=== PATIENT | female | born 1960 | race Caucasian/White ===

== ENCOUNTER 2022-11-21 13:52 | Emergency (ER) | payer OTHER, SELFPAY ==
[2022-11-21 14:02] VITALS: BP 144/83; PULSE 80; RESP 18; TEMP 36.2; O2SAT 97
--- NOTE | 2022-11-21 14:51 | ED.FEMALEGU ---
HPI - Female Genitourinary General Time Seen by Provider: 14:51 Date Seen: 11/21/22 Chief complaint: Vaginal Bleeding Stated complaint: no period 20 years, bled this morning Time Seen by Provider: 11/21/22 14:21 Source: patient and RN notes reviewed Mode of arrival: ambulatory Limitations: no limitations History of Present Illness HPI Narrative: This 62-year-old female is coming into our ER with postmenopausal bleeding that started today. 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 She awoke and had some light spotting this morning with wiping. She started to have more heavy bleeding. She went to the bathroom just prior to coming in here and did not have any more bleeding with wiping. She went through menopause about 20 years ago, states she did have heavy bleeding in perimenopause. She denies any abdominal pain. She has had no night sweats. She does endorse unintentional weight loss but admits that her job is stressful. She knows that she has went from large [employer] to Home[employer]. She denies any history of abnormal Pap smears. She admits she has not been to the doctor for years since she quit having her periods. She is a heavy smoker. She states that she does have underlying renal cysts and has chronic hematuria with that. MD elicited complaint: vaginal bleeding Related Data Home Medications Medication Instructions Recorded Confirmed No Known Home Medications 11/21/22 11/21/22 Allergies Allergy/AdvReac Type Severity Reaction Status Date / Time Penicillins Allergy Severe Hives Verified 11/21/22 14:01 Review of Systems Status of ROS: Reports: 6 or more systems reviewed and unremarkable except as noted in History and below PFSH PFS Social History Smoking Status: Current every day smoker What tobacco products do you use: cigarettes Do you use any of these nicotine containing products: None How often do you have a drink containing alcohol: never How often do you have six or more drinks on one occasion: Never AUDIT-C Alcohol total score: 0 Non-prescribed substance use: denies use Exam Const: Vital Signs, click to edit/add: Vital Signs - 24 hr 11/21/22 14:02 Temperature 97.2 F L Pulse Rate [Pulse Oximeter] 80 Respiratory Rate 18 Blood Pressure [Ri ght Upper Arm] 144/83 H Pulse Oximetry 97 Oxygen Delivery Me thod Room Air Very pleasant 62-year-old female is alert interactive no apparent distress, ambulatory into the ED of her own accord. She has clear sclera, conjugate gaze. Lungs are clear with good air entry, no wheezing or crackles. CV regular rate and rhythm no murmur, normal S1 and S2. Abdomen is soft, no rebound or guarding, no organomegaly. Pelvic exam deferred at this point, we will be getting an ultrasound. Course Course ED Course: Reviewed with this patient that postmenopausal bleeding is most definitely abnormal, need to proceed with an ultrasound. Will also get baseline labs. She is not actively bleeding at this time, will be observed while here. Reevaluation(s) Time of Reevaluation #1: 17:25 Reevaluation #1: Reviewed US and labs, provided disc of US to take to f/up appointment. Stressed the need to follow up to have endometrial biopsy done to ensure that this bleeding is not from uterine cancer. Vital Signs Vital signs: Initial Vital Signs Temperature 97.2 F L 11/21/22 14:02 Temperature Source Temporal Artery Scan 11/21/22 14:02 Pulse Rate 80 11/21/22 14:02 Respiratory Rate 18 11/21/22 14:02 Blood Pressure 144/83 H 11/21/22 14:02 Blood Pressure Mean 103 11/21/22 14:02 Blood Pressure Position Sitting 11/21/22 14:02 Pulse Oximetry 97 11/21/22 14:02 Oxygen Delivery Method Room Air 11/21/22 14:02 Vital Signs Temperature 97.2 F L 11/21/22 14:02 Pulse Rate 80 11/21/22 14:02 Respiratory Rate 18 11/21/22 14:02 Blood Pressure 144/83 H 11/21/22 14:02 Pulse Oximetry 97 11/21/22 14:02 Oxygen Delivery Method Room Air 11/21/22 14:02 Temperature 97.2 F L 11/21/22 14:02 Pulse Rate 80 11/21/22 14:02 Respiratory Rate 18 11/21/22 14:02 Blood Pressure 144/83 H 11/21/22 14:02 Pulse Oximetry 97 11/21/22 14:02 Oxygen Delivery Method Room Air 11/21/22 14:02 MDM - Female Genitourinary Lab Data Attestation: I reviewed the patient's lab results. Labs: Lab Results 11/21/22 Range/Units 15:08 WBC 6.67 (4.50-11.00) K/uL RBC 4.88 (4.00-5.20) m/uL Hgb 14.5 (12.0-16.0) gm/dL Hct 43.2 (33.0-51.0) % MCV 89 (80-100) fL MCH 30 (26-34) pg MCHC 34 (32-36) gm/dL RDW Coeff of Brando 14.4 (11.5-15.5) % Plt Count 339 (140-440) K/uL Neut % (Auto) 51.1 (42.0-72.0) % Lymph % (Auto) 37.6 (20-44) % [place] % (Auto) 8.8 (0.0-11.0) % Eos % (Auto) 1.5 (0.0-7.0) % Baso % (Auto) 0.9 (0.0-3.0) % Neut # (Auto) 3.40 (1.7-7.0) K/uL Lymph # (Auto) 2.51 (0.90-2.90) K/uL [place] # (Auto) 0.60 (0.00-0.90) K/UL Eos # (Auto) 0.10 (0.00-0.50) K/uL Baso # (Auto) 0.06 (0.00-0.30) K/uL Abs Immat Gran (auto) 0.01 (0.00-0.30) K/uL Imm/Tot Granulo (auto) 0.1 % Sodium 136 (135-149) mmol/L Potassium 3.9 (3.6-5.1) mmol/L Chloride 103 (96-114) mmol/L Carbon Dioxide 27 (20-32) mmol/L Anion Gap 6 L (7-15) mEq/L BUN 13 (7-30) mg/dL Creatinine 1.0 (0.5-1.5) mg/dL Estimated GFR 64 ml/min Glucose 83 (60-115) mg/dL Calcium 9.6 (8.4-10.6) mg/dL Total Bilirubin 0.4 (0.1-1.5) mg/dL AST 29 (12-35) U/L ALT 25 (4-35) U/L Alkaline Phosphatase 90 (40-150) U/L C-Reactive Protein 0.6 (0.5-1.0) mg/dL Total Protein 7.4 (6.0-8.3) g/dL Albumin 4.2 (3.3-5.0) g/dL Imaging Data US pelvis: Attestation: I have reviewed the pertinent imaging results. Radiologist's impression: Patient: CÉSAR HARRISON Facility:?[facility] Patient ID:?[id number] Site Patient ID:?[id number]. Site :?[id number] Study:?US Pelvis PELVIS TA & TV-11/21/2022 3:54:43 PM Ordering Physician:Meir Huber Final Report: INDICATION: Postmenopausal bleeding. TECHNIQUE: Ultrasound pelvis transabdominal and transvaginal. Real-time sonographic images with spectral and color Doppler imaging of the ovaries were obtained. COMPARISON: None. FINDINGS: Uterus: 5.9 x 2.9 x 4.6 cm. Normal echotexture of the myometrium. No masses. Endometrium: Endometrial thickness measures 3 mm. The endometrium in the lower uterine segment appears heterogeneous with calcification. Nabothian cysts within the cervical segment. Right ovary 2.3 x 1.3 x 1.1 cm. Left ovary 2.5 x 1.3 x 1.4 cm. Small calcification in the left ovary. Normal arterial and venous blood flow is demonstrated in both ovaries. Cul-de-sac: No significant free fluid. IMPRESSION: 1. Heterogeneous endometrium in the lower uterine segment, incompletely characterized on ultrasound. 2. Small punctate calcification within the left ovary, raising the possibility of a tiny underline ovarian dermoid. Otherwise, no definite mass identified. Dictated by Yunier Hill MD @ 11/21/2022 5:09:48 PM (Electronic Signature) Critical Care Time Critical Care Time Critical Care Time: No Discharge Plan Discharge Clinical Impression: Postmenopausal bleeding Patient Disposition: Home, Self-Care Condition: Stable Instructions: Endometrial Biopsy (DC) Additional Instructions: You need to follow-up with someone that can perform an endometrial biopsy as soon as possible. It is imperative that you have follow-up to further evaluate postmenopausal bleeding even if you have no further bleeding. Underlying endometrial cancer needs to be ruled out with an endometrial biopsy. Some primary care providers will do this, otherwise someone in Obstetrics and Gynecology certainly can. In the interim, if you should have development of heavy bleeding, need to seek re-evaluation. Activity Level: Activity as Tolerated Discharge Diet: Regular Prescriptions: No Action No Known Home Medications Follow Up/Referrals: Provider,Not a Local [Primary Care Provider] - Stand Alone Forms: ISpeak Info Instructions
--- NOTE | 2022-11-21 14:54 | CRLHL7_ITS ---
For Patients: As a result of the Century Cures Act, medical imaging exams and procedure reports are released immediately into your electronic medical record. You may view this report before your referring provider. If you have questions, please contact your health care provider. INDICATION: Postmenopausal bleeding. TECHNIQUE: Ultrasound pelvis transabdominal and transvaginal. Real-time sonographic images with spectral and color Doppler imaging of the ovaries were obtained. COMPARISON: None. FINDINGS: Uterus: 5.9 x 2.9 x 4.6 cm. Normal echotexture of the myometrium. No masses. Endometrium: Endometrial thickness measures 3 mm. The endometrium in the lower uterine segment appears heterogeneous with calcification. Nabothian cysts within the cervical segment. Right ovary 2.3 x 1.3 x 1.1 cm. Left ovary 2.5 x 1.3 x 1.4 cm. Small calcification in the left ovary. Normal arterial and venous blood flow is demonstrated in both ovaries. Cul-de-sac: No significant free fluid. IMPRESSION: 1. Heterogeneous endometrium in the lower uterine segment, incompletely characterized on ultrasound. 2. Small punctate calcification within the left ovary, raising the possibility of a tiny underline ovarian dermoid. Otherwise, no definite mass identified. Dictated by Yunier Hill MD @ 11/21/2022 5:09:48 PM (Electronically Signed)
[2022-11-21 15:21] LABS: Basophils Absolute Auto 0.06 K/uL (0.00-0.30); Basophils Percent Auto 0.9 % (0.0-3.0); Eosinophils Percent Auto 1.5 % (0.0-7.0); Hematocrit 43.2 % (33.0-51.0); Hemoglobin* 14.5 gm/dL (12.0-16.0); Immature Granulocytes Abs Auto 0.01 K/uL (0.00-0.30); Immature Granulocytes Pct Auto 0.1 %; Lymphocytes Absolute Auto 2.51 K/uL (0.90-2.90); Lymphocytes Percent Auto 37.6 % (20-44); Mean Corpuscular HGB Conc 34 gm/dL (32-36); Mean Corpuscular Hemoglobin 30 pg (26-34); Mean Corpuscular Volume 89 fL (80-100); Monocytes Percent Auto 8.8 % (0.0-11.0); Neutrophils Percent Auto 51.1 % (42.0-72.0); Platelet Count* 339 K/uL (140-440); RDW Coefficient of Variation % 14.4 % (11.5-15.5); Red Blood Count 4.88 m/uL (4.00-5.20); White Blood Count* 6.67 K/uL (4.50-11.00)
[2022-11-21 15:22] LABS: Slide Review Reflex No
[2022-11-21 15:35] LABS: Albumin* 4.2 g/dL (3.3-5.0); Chloride* 103 mmol/L (96-114)
[2022-11-21 15:36] LABS: Potassium* 3.9 mmol/L (3.6-5.1); Sodium* 136 mmol/L (135-149)
[2022-11-21 15:38] LABS: Alkaline Phosphatase* 90 U/L (40-150); Anion Gap 6 mEq/L (7-15); Aspartate Amino Transferase* 29 U/L (12-35); Bilirubin Total* 0.4 mg/dL (0.1-1.5); Carbon Dioxide* 27 mmol/L (20-32); Estimated Glomerular Filt Rate 64 ml/min; Total Protein* 7.4 g/dL (6.0-8.3)
[2022-11-21 15:39] LABS: Alanine Aminotransferase* 25 U/L (4-35); Blood Urea Nitrogen* 13 mg/dL (7-30); Calcium* 9.6 mg/dL (8.4-10.6); Glucose* 83 mg/dL (60-115)
[2022-11-21 15:41] LABS: C Reactive Protein* 0.6 mg/dL (0.5-1.0)
--- NOTE | 2022-11-21 16:30 | ED.NURSE ---
patient wanted to go out to smoke as has been a couple of hours. 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
--- NOTE | 2022-11-21 17:22 | ED.NURSE ---
Dr. De La Cruz is in talking with patient of results and waiting for disc to send with patient.
== END 2022-11-21 17:28 | disposition home or self-care (01) ==
PROVIDERS: Emergency Provider Family Medicine
DX: N95.0 Postmenopausal bleeding (principal)
CPT/HCPCS: 36415; 76830; 76856; 80053; 85025; 86140; 99283; 99284